=== PATIENT | female | born 1955 | race Caucasian/White ===

== ENCOUNTER → 2020-01-09 | Day surgery (SDC) | payer MEDICARE, OTHER ==
[2020-01-07 13:01] LABS: COVID AG,FIA SOURCE NASOPHARYNGEAL
[~2020-01-09] VITALS: Ht 149.9 cm; Wt 71.8 kg
[~2020-01-09] MED LIST: ALBUTEROL SULFATE 2.5 MG/0.5 ML NEB SOLUTION NEB ONE; ATOR40TA71 PO; BENZOCAINE 20% 50 MCG/SPRAY 57 GM TP ONE; FLUT1BLS IH; FentaNYL CITRATE-PF 100 MCG/2 ML VIAL ONE; GLIP5TAB11 PO; LIDOCAINE 2% 30 ML JELLY TP ONE; LIDOCAINE 4% 50 ML SOLUTION TP ONE; LISI-618 PO; METF-446 PO; MIDAZOLAM HCL 2 MG/2 ML VIAL ONE; MIRT15TA6 PO; MIRT30TA6 PO; MONT10TA26 PO; MethylPREDNISolone SOD SUCC 125 MG/2 ML VIAL IVP ONE; MethylPREDNISolone SOD SUCC 125 MG/2 ML VIAL ONE; OLAN10TA3 PO; OLAN5TAB27 PO; OMEP20CA12 PO; OXYB5 PO; OXYGEN THERAPY IH SCH; PANT40TA54 PO; SODIUM CHLORIDE 0.9% 1,000 ML IV ONE; SODIUM CHLORIDE 0.9% 1,000 ML ONE
[2020-01-09 07:24] LABS: GLUCOMETER DEV NAME(LOC) SDS.; GLUCOSE,POINT OF CARE 134 MG/DL (70-110)
== END | disposition home or self-care (01) ==
LOC: SURGERY 06:16
PROVIDERS: ATTEND Internal Medicine Critical Care Medicine
DX: J38.4 Edema of larynx (principal); B37.0 Candidal stomatitis; Z20.828 Contact with and (suspected) exposure to other viral communicable diseases
CPT/HCPCS: 31623; 31624; 71045; 82962; 87015; 87070; 87101; 87205; 87206; 87220; 87426; C9803; J2250; J2930; J3010; J7030; J7613; Z7610

== ENCOUNTER 2020-11-05 06:29 | Day surgery (SDC) | payer MEDICARE, OTHER ==
[2020-11-03 14:59] LABS: COVID AG,FIA SOURCE NASOPHARYNGEAL
[~2020-11-05] VITALS: Ht 152.4 cm; Wt 72.7 kg
[~2020-11-05 06:29] MED LIST changes: -ALBUTEROL SULFATE 2.5 MG/0.5 ML NEB SOLUTION NEB ONE; -BENZOCAINE 20% 50 MCG/SPRAY 57 GM TP ONE; -FentaNYL CITRATE-PF 100 MCG/2 ML VIAL ONE; -LIDOCAINE 2% 30 ML JELLY TP ONE; -LIDOCAINE 4% 50 ML SOLUTION TP ONE; -LISI-618 PO; +LISI20TA24 PO; -MIDAZOLAM HCL 2 MG/2 ML VIAL ONE; +MIRT-92 PO; -MIRT15TA6 PO; -MIRT30TA6 PO; -MONT10TA26 PO; +MONT10TA32 PO; -MethylPREDNISolone SOD SUCC 125 MG/2 ML VIAL IVP ONE; -MethylPREDNISolone SOD SUCC 125 MG/2 ML VIAL ONE; -OLAN10TA3 PO; +OLAN10TA74 PO; -OLAN5TAB27 PO; -OMEP20CA12 PO; -OXYB5 PO; +OXYB5TAB20 PO; -OXYGEN THERAPY IH SCH
[2020-11-05] MEDS ORDERED: SODIUM CHLORIDE 0.9% 1,000 ML IV ONE (06:30)
[2020-11-05 07:25] LABS: GLUCOMETER DEV NAME(LOC) SDS.; GLUCOSE,POINT OF CARE 176 MG/DL (70-110)
[2020-11-05] MEDS ORDERED: MIDAZOLAM HCL 5 MG/ML VIAL ONE (07:32)
[2020-11-05] MEDS ORDERED: FentaNYL CITRATE PF 100 MCG/2 ML VIAL ONE (07:32)
[2020-11-05] MEDS ORDERED: MethylPREDNISolone SOD SUCC 125 MG/2 ML VIAL IVP ONE (09:30)
[2020-11-05] MEDS ORDERED: MethylPREDNISolone SOD SUCC 125 MG/2 ML VIAL ONE (09:55)
[2020-11-05] MEDS ORDERED: OXYGEN THERAPY IH SCH (20:00)
== END 2020-11-05 11:05 | disposition home or self-care (01) ==
LOC: SURGERY 06:29
PROVIDERS: ATTEND Internal Medicine Critical Care Medicine
DX: J38.4 Edema of larynx (principal); B37.0 Candidal stomatitis; E11.9 Type 2 diabetes mellitus without complications; I10 Essential (primary) hypertension; Z79.899 Other long term (current) drug therapy; Z79.84 Long term (current) use of oral hypoglycemic drugs; Z98.890 Other specified postprocedural states
CPT/HCPCS: 31623; 31624; 71045; 82962; 87015; 87070; 87101; 87205; 87206; 87220; 87426; 88108; 88184; 88185; 88312; C9803; J2250; J2930; J3010; J7030